=== PATIENT | female | born 1930 | race Caucasian/White ===

== ENCOUNTER 2017-01-20 19:05 | Inpatient (IN) | payer MEDICARE, OTHER ==
[~2017-01-20] VITALS: Ht 154.9 cm; Wt 66.1 kg
[~2017-01-20 19:05] MED LIST: ACID1TAB14 PO; AMLO5TAB4 PO; ASC500 GTB; ASPI81TA3 PO; LEVO25TA53 PO; LOSA100T47 PO; METF500T4 PO; METO50TA16 PO; MULTI GTB; SAN30GM TOP; SIMV20TA PO; VIT5OINT2 TOP; WARF4TAB PO
--- NOTE | 2017-01-20 19:55 | RADRPT ---
PROCEDURE: XR Chest. CLINICAL INDICATION: Abdominal pain TECHNIQUE: Single frontal view of the chest was obtained COMPARISON: 06/16/2016 FINDINGS: Atherosclerotic changes are seen in the aortic arch. There is persistent tortuosity of the descending thoracic aorta. The heart is upper limits of normal in size. Mild pulmonary vascular congestion is present. The lungs are otherwise clear. There is no pleural effusion or pneumothorax. The bones and soft tissue show no acute change. IMPRESSION: 1. Mild pulmonary vascular congestion is seen. 2. The heart is upper limits of normal in size with tortuosity of the descending thoracic aorta. RPTAT:AAJJ Physician Sofía Date Time Electronically viewed and signed by Vaibhav Hicks Physician on 01/20/2017 19:55 /
[2017-01-20 19:57] LABS: ABNORMAL IP MESSAGE 1; HEMATOCRIT 17.9 % (37.0-47.0); MEAN CORPUSCULAR HEMOGLOBIN 17.4 pg (29.0-33.0); MEAN CORPUSCULAR HGB CONC 25.1 g/dl (32.0-37.0); MEAN CORPUSCULAR VOLUME 69.1 fl (82.0-101.0); MEAN PLATELET VOLUME 9.4 fl (7.4-10.4); NUCLEATED RED BLOOD CELLS% 0.2 /100WBC (0.0-0.0); PLATELET COUNT 531 10^3/UL (140-415); RED BLOOD COUNT 2.59 10^6/ul (4.20-5.40)
[2017-01-20 20:12] LABS: INR 2.32; PROTIME 25.7 Sec (12.2-14.2)
[2017-01-20 20:13] LABS: HEMOGLOBIN 4.5 g/dl (12.0-16.0); PARTIAL THROMBOPLASTIN TIME 33.2 Sec (25.0-35.0); POSITIVE DIFF @See below
[2017-01-20 20:14] LABS: IRON 25 ug/dl (35-150)
[2017-01-20 20:16] LABS: ALANINE AMINOTRANSFERASE 33 IU/L (13-69); ALBUMIN 3.4 g/dl (3.3-4.9); ALBUMIN/GLOBULIN RATIO 0.91; ALKALINE PHOSPHATASE 105 IU/L (42-121); ANION GAP 18 (8-16); ASPARTATE AMINO TRANSFERASE 24 IU/L (15-46); BILIRUBIN,INDIRECT 0.1 mg/dl (0-1.1); BILIRUBIN,TOTAL 0.1 mg/dl (0.2-1.3); BLOOD UREA NITROGEN 19 mg/dl (7-20); CALCIUM 9.3 mg/dl (8.4-10.2); CARBON DIOXIDE 26 mmol/L (21-31); CHLORIDE 103 mmol/L (97-110); CREATININE 0.46 mg/dl (0.44-1.00); GLUCOSE 121 mg/dl (70-220); POTASSIUM 3.9 mmol/L (3.5-5.1); SODIUM 143 mmol/L (135-144); TOTAL PROTEIN 7.1 g/dl (6.1-8.1)
[2017-01-20 20:24] LABS: TOTAL IRON BINDING CAPACITY 351 ug/dl (241-421)
[2017-01-20 21:04] LABS: EOSINOPHILS # 1.2 10^3/ul (0.0-0.5); LYMPHOCYTES # 2.6 10^3/ul (0.8-2.9); MONOCYTE # 0.5 10^3/ul (0.3-0.9); NEUTROPHIL # 6.7 10^3/ul (1.6-7.5)
[2017-01-20 21:09] LABS: HYPOCHROMASIA 3+ (0-0)
[2017-01-20 21:32] LABS: FOLATE > 20.0 ng/ml (2.8-20.0)
--- NOTE | 2017-01-20 22:08 | ERA ---
ER Documentation Chief Complaint Date/Time DATE: 01/20/17 TIME: 21:57 Chief Complaint SENT BY PMD FOR LOW HEMOGLOBIN HPI This 86-year-old female with a past medical history of herpes zoster, right eye blindness, dementia, right CVA, type 2 diabetes mellitus and essential hypertension who is cared for at home by her family. She had routine blood work done by her primary care physician she was sent in for low hemoglobin. The family states that he changed her diapers every day and she has not had any black stool. She is however on Coumadin. She has had no vomiting no fever no cough the patient has very limited ability to converse due to her severe dementia and stroke. She is essentially bedridden. ROS All systems reviewed and are negative except as per history of present illness. Medications Home Meds Reported Medications Metformin* (Glucophage*) 500 Mg Tab, 500 MG PO QAM, #30 TAB 04/30/16 Simvastatin* (Zocor*) 20 Mg Tablet, 20 MG PO QHS, #30 TAB 04/30/16 Warfarin Sodium* (Coumadin*) 4 Mg Tablet, 4 MG PO DAILY, TAB 04/30/16 Levothyroxine Sodium* (Levothyroxine Sodium*) 25 Mcg Tablet, 25 MCG PO BEFORE BREAKFAST, #30 TAB 04/30/16 Metoprolol Succinate* (Toprol XL*) 50 Mg Tab.er.24h, 50 MG PO DAILY, #30 TAB TAKE 25 MG IF SBP 100 04/30/16 Aspirin* (Aspirin* Chew) 81 Mg Tab.chew, 81 MG PO DAILY, TAB.CHEW 04/30/16 Losartan Potassium* (Cozaar*) 100 Mg Tablet, 100 MG PO DAILY for NEEDED, #30 TAB 04/30/16 Amlodipine Besylate* (Norvasc*) 5 Mg Tablet, 5 MG PO DAILY for NEEDED, TAB 04/30/16 Discontinued Scripts Vits A & D/White Pet/Lanolin (Vitamin A & D Grx) 5 Gm Oint.pack, 1 APPLIC TOP BID for 30 Days Prov:SAM SCHERER 06/10/16 Multivitamins* (Theragran*) 1 Tab Tab, 1 TAB GTB DAILY for 30 Days, TAB Prov:REGIDORSAM 06/10/16 Lactobacillus Acidoph/Bulgaricus* (Floranex*) 1 Each Tablet, 1 TAB PO TID for 30 Days, TAB Prov:SAM SCHERER 06/10/16 Collagenase* (Santyl*) 30 Gm Oint..gm., 1 APPLIC TOP DAILY for 30 Days Prov:SAM SCHERER 06/10/16 Ascorbic Acid (Vitamin C) 500 Mg Tab, 500 MG GTB BID for 30 Days, TAB Prov:REGIDOSAM Gomez 06/10/16 Allergies Allergies: Coded Allergies: No Known Allergy (Unverified , 01/20/17) PMhx/Soc History of Surgery: Yes (, Appendectmy) Anesthesia Reaction: No Hx Neurological Disorder: Yes (Dementia, CVA with Right sided weakness) Hx Respiratory Disorders: No Hx Cardiac Disorders: Yes (HTN) Hx Psychiatric Problems: No Hx Miscellaneous Medical Probl: Yes (Herpes Zoster) Hx Alcohol Use: No Hx Substance Use: No Hx Tobacco Use: No Smoking Status: Never smoker FmHx Family History: No coronary disease Physical Exam Vitals Vital Signs Date Time Temp Pulse Resp B/P Pulse Ox O2 Delivery O2 Flow Rate FiO2 01/20/17 19:08 99.2 100 19 139/62 93 Physical Exam Const: [Well-developed, well-nourished] Head: [Atraumatic, normocephalic] Eyes: [Normal Conjunctiva, right eye shut PERRLA, EOMI, normal sclera, no nystagmus] ENT: [Normal External Ears, Nose and Mouth, moist mucus membranes.] Neck: [Full range of motion. No meningismus, no lymphadenopathy.] Resp: [Clear to auscultation bilaterally, no wheezing, rhonchi, rales] Cardio: [Regular rate and rhythm, no murmurs, S1 S2 present] Abd: [Soft, non tender x 4, non distended. Normal bowel sounds, no guarding or rebound, no pulsitile abdominal masses or bruits] Skin: [No petechiae or rashes, no ecchymosis , no maculopapular rash] Back: [No midline or flank tenderness] Ext: Contracted extremities [No cyanosis, or edema, limited range of motion normal inspection, neurovascularly intact x 4] Neur: [Sleepy but arousable sensation intact x 4, Psych: Unable to assess Result Diagram: 01/20/17194101/20/171941 Results 24 hrs Laboratory Tests Test 01/20/17 19:42 White Blood Count 11.510^3/ul Red Blood Count 2.5910^6/ul Hemoglobin 4.5g/dl Hematocrit 17.9% Mean Corpuscular Volume 69.1fl Mean Corpuscular Hemoglobin 17.4pg Mean Corpuscular Hemoglobin Concent 25.1g/dl Red Cell Distribution Width 22.0% Platelet Count 20758^3/UL Mean Platelet Volume 9.4fl Neutrophils % 58.0% Lymphocytes % 23.0% Monocytes % 4.0% Eosinophils % 10.0% Basophils % % Nucleated Red Blood Cells % 0.2/100WBC Neutrophils # 6.710^3/ul Band Neutrophils # 6.710^3/ul Lymphocytes # 2.610^3/ul Monocytes # 0.510^3/ul Eosinophils # 1.210^3/ul Basophils # 10^3/ul Nucleated Red Blood Cells # 10^3/ul Hypochromasia 3+ Rouleau 3+ Prothrombin Time 25.7Sec Prothrombin Time Ratio 2.0 INR International Normalized Ratio 2.32 Activated Partial Thromboplast Time 33.2Sec Sodium Level 143mmol/L Potassium Level 3.9mmol/L Chloride Level 103mmol/L Carbon Dioxide Level 26mmol/L Anion Gap 18 Blood Urea Nitrogen 19mg/dl Creatinine 0.46mg/dl Glucose Level 121mg/dl Calcium Level 9.3mg/dl Iron Level 25ug/dl Total Iron Binding Capacity 351ug/dl Percent Iron Saturation 7% SAT Total Bilirubin 0.1mg/dl Direct Bilirubin 0.00mg/dl Indirect Bilirubin 0.1mg/dl Aspartate Amino Transf (AST/SGOT) 24IU/L Alanine Aminotransferase (ALT/SGPT) 33IU/L Alkaline Phosphatase 105IU/L Total Protein 7.1g/dl Albumin 3.4g/dl Globulin 3.70g/dl Albumin/Globulin Ratio 0.91 Folate > 20.0ng/ml Procedures/MDM PROCEDURE: XR Chest. CLINICAL INDICATION: Abdominal pain TECHNIQUE: Single frontal view of the chest was obtained COMPARISON: 06/16/2016 FINDINGS: Atherosclerotic changes are seen in the aortic arch. There is persistent tortuosity of the descending thoracic aorta. The heart is upper limits of normal in size. Mild pulmonary vascular congestion is present. The lungs are otherwise clear. There is no pleural effusion or pneumothorax. The bones and soft tissue show no acute change. IMPRESSION: 1. Mild pulmonary vascular congestion is seen. 2. The heart is upper limits of normal in size with tortuosity of the descending thoracic aorta. RPTAT:AAJJ Vaibhav Hicks Physician Date Time Electronically viewed and signed by Vaibhav Hicks Physician on 01/20/2017 19: 55 MC/ CC: SONIYA CASTANEDA DO Patient is going to receive 2 units of packed red blood cells. INR is 2.25 We will give FFP to reverse the coagulopathy We will admit to panel for blood transfusion and further workup Critical Care Time: 30 minutes Treatments/Evaluations: Close monitoring and treatment of unstable vital signs, cardiorespiratory, and neurologic status, while maintaining tight balance of fluid, respiratory, and cardiac interventions. This time includes discussing the case with the patient and the patient's family. This time does not include all procedures stated elsewhere in this record. This time also includes reviewing old records, labs and radiological studies. This time includes examining and re-examining the patient. Additionally, this time also includes arranging care with admitting and consulting physicians. Departure Diagnosis: Primary Impression: Anemia Qualified Code: D64.9 - Anemia, unspecified type Condition: Stable SONIYA CASTANEDA DO Jan 20, 2017 22:07
[2017-01-20] MEDS ORDERED: ONDANSETRON 4 MG INJ IV PRN (22:30)
[2017-01-20] MEDS ORDERED: ACETAMINOPHEN 325 MG TAB PO PRN (22:30)
[2017-01-20 23:00] VITALS: TEMP 99
[2017-01-20 23:30] VITALS: Ht 154.9 cm; Wt 66.1 kg
[2017-01-21] VITALS (10 sets, daily range): BP systolic 127–160; BP diastolic 57–70; PULSE 90–112; RESP 17–20
[2017-01-21] MEDS ORDERED: FUROSEMIDE 20 MG INJ IV ONE (01:30)
[2017-01-21] MEDS: PANTOPRAZOLE IV 80 MG in SOD CHLORIDE 0.9% 100 ML IV SCH ×3 (03:33→21:21)
[2017-01-21] MEDS ORDERED: hydrALAzine 20 MG INJ IV PRN (05:00)
--- NOTE | 2017-01-21 05:56 | HP ---
Date/Time of Note Date/Time of Note DATE: 01/21/17 TIME: 05:44 Assessment/Plan VTE Prophylaxis VTE Prophylaxis Intervention: SCD's Lines/Catheters IV [facility] (from [facility] Peripheral IV Urinary Cath still in place: Yes Assessment/Plan Assessment/Plan IMPRESSION 1. Severe microcytic iron deficiency Anemia 2. History of CVA, patient is aphasic with chronic bedridden state 3. Type 2 diabetes mellitus. 4. Essential hypertension. 5. History of hypothyroidism. 6. Cardiomyopathy with ejection fraction of 40%. 7. Bilateral foot pressure ulcers. 8. Dysphagia with G-tube for feeding 9. History of dyslipidemia. PLAN - Continue blood transfusion. Will order ferritin to further evaluate the severity of iron deficiency. Will start IV iron. Will order FOBT. Will place a GI consult -will keep n.p.o. for now until seen by GI and then will resume home medications with adjustment as needed -will hold tube feeding for now until evaluated by GI -will place on antibiotic for ulcers on both her feet. Wound care consult will be placed HPI/ROS Admit Date/Time Admit Date/Time Jan 20, 2017 at 22:20 Hx of Present Illness This is an 86-year-old female with a history of CVA, chronic bedridden state, right eye blindness, dysphagia with G-tube for feeding, cardiomyopathy with EF of 40%, hypertension, diabetes, dyslipidemia and a history of infected sacral pressure ulcers. Patient was sent by PMD for abnormal lab, namely low hemoglobin. Patient is aphasic and does not follow commands and as such information is gathered from chart review and from the ER physician report. When she presented to the ER she was found to have a hemoglobin of 4.2 with MCV of 69. Iron studies consistent with iron deficiency. She has been started on the blood transfusion. Per ER physician, family reported that they change her diet per daily and has not seen dark stool or bright red blood. . PMH/Family/Social Past Medical History 1. Status post sepsis secondary to urinary tract infection and infected sacral pressure ulcers. 2. Microcytic, hypochromic anemia. 3. Type 2 diabetes mellitus. 4. Essential hypertension. 5. Hypothyroidism. 6. Cardiomyopathy with ejection fraction of 40%. 7. Infected sacral pressure ulcers. 8. Dysphagia. 9. Dyslipidemia. 10. Hypercoagulability on anticoagulation. 11. Chronic bedridden status. 12. Mild pulmonary hypertension. Social History Smoking Status: Never smoker Exam/Review of Systems Vital Signs Vitals Vital Signs Date Time Temp Pulse Resp B/P Pulse Ox O2 Delivery O2 Flow Rate FiO2 01/21/17 04:08 93 01/21/17 00:18 98.4 17 160/67 98 01/21/17 00:00 Nasal Cannula 2.0 Exam Constitutional: other (No acute distress. Patient is aphasic and she does not follow commands.) Head: atraumatic, normocephalic Eyes: other (Right eye blindness) Respiratory: clear to auscultation, normal air movement Cardiovascular: other (Tachycardic with regular rhythm) Gastrointestinal: other (NG tube in place with no sign of infection in the surrounding skin), soft Extremities: other (Pressure ulcers on both feet) Labs Result Diagram: 01/20/17194101/20/171941 Medications Medications Current Medications Pantoprazole/ Sodium Chloride (Protonix Iv/NS) 100 ml @ 10 mls/hr Q10H IV Last administered on 01/21/17t 03:33; Admin Dose 10 MLS/HR; Start 01/21/17 at 01: 30 Hydralazine HCl (Apresoline) 10 mg Q4H PRN IV ELEVATED SYSTOLIC BP; Start at 05:00 Metoprolol Tartrate (Lopressor) 25 mg Q12 GTB ; Start 01/21/17 at 09:00 LIZETH WHITE MD Jan 21, 2017 05:54
[2017-01-21 08:36] LABS: ABNORMAL IP MESSAGE 1; BASOPHIL # 0.1 10^3/ul (0.0-0.1); BASOPHILS % 0.5 % (0.0-2.0); EOSINOPHILS # 0.7 10^3/ul (0.0-0.5); EOSINOPHILS % 6.8 % (0.0-7.0); HEMATOCRIT 28.7 % (37.0-47.0); LYMPHOCYTES # 2.6 10^3/ul (0.8-2.9); MEAN CORPUSCULAR HEMOGLOBIN 20.4 pg (29.0-33.0); MEAN CORPUSCULAR HGB CONC 27.9 g/dl (32.0-37.0); MEAN PLATELET VOLUME 9.6 fl (7.4-10.4); MONOCYTE # 0.9 10^3/ul (0.3-0.9); NEUTROPHIL # 6.1 10^3/ul (1.6-7.5); NEUTROPHILS % 57.4 % (39.0-77.0); NUCLEATED RED BLOOD CELLS # 0.1 10^3/ul (0.0-0.0); NUCLEATED RED BLOOD CELLS% 1.3 /100WBC (0.0-0.0); PLATELET COUNT 418 10^3/UL (140-415); RED BLOOD COUNT 3.93 10^6/ul (4.20-5.40); WHITE BLOOD COUNT 10.7 10^3/ul (4.8-10.8)
[2017-01-21 08:37] LABS: POSITIVE DIFF @See below
[2017-01-21] MEDS: TRIMETHOPRIM/SULFAMETHOX (DS) TAB GTB SCH ×2 (09:00→21:20)
[2017-01-21] MEDS ORDERED: METOPROLOL 25 MG TAB GTB SCH (09:00)
[2017-01-21 09:14] LABS: ALBUMIN 3.8 g/dl (3.3-4.9); ALBUMIN/GLOBULIN RATIO 0.97; BILIRUBIN,INDIRECT 0.4 mg/dl (0-1.1); BILIRUBIN,TOTAL 0.4 mg/dl (0.2-1.3); CALCIUM 9.4 mg/dl (8.4-10.2); CREATININE 0.45 mg/dl (0.44-1.00); MAGNESIUM 2.2 mg/dl (1.7-2.5); POTASSIUM 3.6 mmol/L (3.5-5.1); TOTAL PROTEIN 7.7 g/dl (6.1-8.1)
--- NOTE | 2017-01-21 10:20 | CONS ---
Date/Time of Note Date/Time of Note DATE: 01/21/17 TIME: 09:56 Assessment/Plan Assessment/Plan Additional Assessment/Plan Assessment * Anemia Iron deficiency vs others * Prolong INR * Diabetes mellitus * Cardiomyopathy with EF 40% * Dysphagia on G tube * Chronic bedridden status Plan * Monitor hemoglobin and hematocrit daily and transfuse per protocol * Pantoprazole 40 mg BID * Stool for occult blood * Further orders will depend on clinical course Consultation Date/Type/Reason Admit Date/Time Jan 20, 2017 at 22:20 Date of Consultation: Jan 21, 2017 Type of Consultation: gastroenterology Reason for Consultation anemia Referring Provider: LADARIUS OAKLEY Hx of Present Illness 86 year old female with history of CVA,blind right eye,cardiomyopathy,G tube feeding,anemia,bedridden,pressure ulcer was sent by her physician because of abnormal laboratory results.Initial hemoglobin was 4.5.Per records family denies any melena ,hematemesis,hematochezia nor chest pain nor shortness of breath.Patient received 2 units of blood and presently receiving fresh frozen plasma.presently,no evidenced hematochezia,melena nor shortness of breath Past Medical History Medical History: congestive heart failure, deep vein thrombosis, diabetes, GERD , other (dysphagia,hypertension,hypercoagulability on coumadin) Past Surgical History Past Surgical Hx: other (g tube) Family History Significant Family History: no pertinent family hx Social History Smoking Status: Never smoker Exam/Review of Systems Vital Signs Vitals Vital Signs Date Time Temp Pulse Resp B/P Pulse Ox O2 Delivery O2 Flow Rate FiO2 01/21/17 08:07 90 01/21/17 07:48 98.6 20 154/64 98 01/21/17 00:00 Nasal Cannula 2.0 Intake and Output 01/20/17 01/20/17 01/21/17 15:00 23:00 07:00 Intake Total 1000 ml Output Total 1700 ml Balance -700 ml Exam Constitutional: frail, other (aphasia) ENMT: mucosa pink and moist Neck: non-tender, supple Respiratory: crackles/rales, diminished breath sounds Cardiovascular: nl pulses, regular rate and rhythm Gastrointestinal: bowel sounds, other (g tube) Musculoskeletal: muscle weakness Extremities: edema, pitting pedal edema Neurological: other (non verbal) Results Result Diagram: 01/21/1730 01/21/17 0730 Results 24 hrs Laboratory Tests Test 01/20/17 19:42 01/21/17 07:30 White Blood Count 11.5 H 10.7 Red Blood Count 2.59 #L 3.93 #L Hemoglobin 4.5 #*L 8.0 #L Hematocrit 17.9 #L 28.7 #L Mean Corpuscular Volume 69.1 L 73.0 L Mean Corpuscular Hemoglobin 17.4 #L 20.4 L Mean Corpuscular Hemoglobin Concent 25.1 #L 27.9 L Red Cell Distribution Width 22.0 H 21.0 H Platelet Count 531 H 418 #H Mean Platelet Volume 9.4 # 9.6 Neutrophils % 58.0 57.4 Lymphocytes % 23.0 24.0 Monocytes % 4.0 8.0 Eosinophils % 10.0 H 6.8 Basophils % 0.5 Nucleated Red Blood Cells % 0.2 H 1.3 H Neutrophils # 6.7 6.1 Band Neutrophils # 6.7 H Lymphocytes # 2.6 2.6 Monocytes # 0.5 0.9 Eosinophils # 1.2 H 0.7 H Basophils # 0.1 Nucleated Red Blood Cells # 0.1 H Hypochromasia 3+ Rouleau 3+ Prothrombin Time 25.7 H Prothrombin Time Ratio 2.0 INR International Normalized Ratio 2.32 Activated Partial Thromboplast Time 33.2 Sodium Level 143 144 Potassium Level 3.9 3.6 Chloride Level 103 102 Carbon Dioxide Level 26 26 Anion Gap 18 H 20 H Blood Urea Nitrogen 19 15 Creatinine 0.46 0.45 Glucose Level 121 111 Calcium Level 9.3 9.4 Iron Level 25 L Total Iron Binding Capacity 351 Percent Iron Saturation 7 L Total Bilirubin 0.1 L 0.4 Direct Bilirubin 0.00 0.00 Indirect Bilirubin 0.1 0.4 Aspartate Amino Transf (AST/SGOT) 24 34 Alanine Aminotransferase (ALT/SGPT) 33 34 Alkaline Phosphatase 105 108 Total Protein 7.1 7.7 Albumin 3.4 3.8 Globulin 3.70 H 3.90 H Albumin/Globulin Ratio 0.91 0.97 Folate > 20.0 H Phosphorus Level 3.0 Magnesium Level 2.2 Ferritin 9.1 L Medications Medications Current Medications Pantoprazole/ Sodium Chloride (Protonix Iv/NS) 100 ml @ 10 mls/hr Q10H IV Last administered on 01/21/17 03:33; Admin Dose 10 MLS/HR; Start 01/21/17 at 01: 30 Hydralazine HCl (Apresoline) 10 mg Q4H PRN IV ELEVATED SYSTOLIC BP; Start at 05:00 Metoprolol Tartrate (Lopressor) 25 mg Q12 GTB ; Start 01/21/17 at 09:00 Trimethoprim/ Sulfamethoxazole (Bactrim (Ds)) 1 tab BID GTB ; Start 01/21/17 at 09:00 ALONDRA BROWN MD Jan 21, 2017 10:06
[2017-01-21 11:23] LABS: WHITE BLOOD COUNT 11.5 10^3/ul (4.8-10.8)
[2017-01-21] MEDS: AMLODIPINE 5 MG TAB PO SCH (15:00)
[2017-01-21] MEDS: LOSARTAN 50 MG TAB PO SCH (15:00)
--- NOTE | 2017-01-21 15:09 | PN ---
Date/Time of Note Date/Time of Note DATE: 01/21/17 TIME: 15:05 Assessment/Plan VTE Prophylaxis VTE Prophylaxis Intervention: SCD's Lines/Catheters IV [facility] ([facility] Peripheral IV Urinary Cath still in place: Yes Reason Cath still needed: urinary retention Assessment/Plan Assessment/Plan Assessment * Anemia Iron deficiency vs others * Refused EGD * Prolong INR * Diabetes mellitus * Cardiomyopathy with EF 40% * Dysphagia on G tube * Chronic bedridden status Plan * Monitor hemoglobin and hematocrit daily and transfuse per protocol * Pantoprazole 40 mg BID * Stool for occult blood * start tube feeding * refer for nutrition consult ,defer feeding orders to seed cleaning manager * Further orders will depend on clinical course Subjective 24 Hr Interval Summary Free Text/Dictation * Patient seen and examined * Spoke to daughter,refused planned EGD preferring observation * Asking to restart feeding Exam/Review of Systems Vital Signs Vitals Vital Signs Date Time Temp Pulse Resp B/P Pulse Ox O2 Delivery O2 Flow Rate FiO2 01/21/17 12:21 99.0 108 19 153/70 95 01/21/17 08:00 Nasal Cannula 2.0 Intake and Output 01/20/17 01/20/17 01/21/17 15:00 23:00 07:00 Intake Total 1000 ml Output Total 1700 ml Balance -700 ml Exam Constitutional: frail Neck: non-tender, supple Respiratory: clear to auscultation, normal air movement Cardiovascular: nl pulses, regular rate and rhythm Gastrointestinal: nl liver, spleen, soft Musculoskeletal: nl extremities to inspection, nl gait and stance Extremities: normal pulses Skin: nl turgor, rash or lesions Results Result Diagram: 01/21/17 0730 01/21/17 0730 Results 24 hrs Laboratory Tests Test 01/20/17 19:42 01/21/17 07:30 White Blood Count 11.5 H 10.7 Red Blood Count 2.59 #L 3.93 #L Hemoglobin 4.5 #*L 8.0 #L Hematocrit 17.9 #L 28.7 #L Mean Corpuscular Volume 69.1 L 73.0 L Mean Corpuscular Hemoglobin 17.4 #L 20.4 L Mean Corpuscular Hemoglobin Concent 25.1 #L 27.9 L Red Cell Distribution Width 22.0 H 21.0 H Platelet Count 531 H 418 #H Mean Platelet Volume 9.4 # 9.6 Neutrophils % 58.0 57.4 Lymphocytes % 23.0 24.0 Monocytes % 4.0 8.0 Eosinophils % 10.0 H 6.8 Basophils % 0.5 Nucleated Red Blood Cells % 0.2 H 1.3 H Neutrophils # 6.7 6.1 Band Neutrophils # Lymphocytes # 2.6 2.6 Monocytes # 0.5 0.9 Eosinophils # 1.2 H 0.7 H Basophils # 0.1 Nucleated Red Blood Cells # 0.1 H Hypochromasia 3+ Rouleau 3+ Prothrombin Time 25.7 H Prothrombin Time Ratio 2.0 INR International Normalized Ratio 2.32 Activated Partial Thromboplast Time 33.2 Sodium Level 143 144 Potassium Level 3.9 3.6 Chloride Level 103 102 Carbon Dioxide Level 26 26 Anion Gap 18 H 20 H Blood Urea Nitrogen 19 15 Creatinine 0.46 0.45 Glucose Level 121 111 Calcium Level 9.3 9.4 Iron Level 25 L Total Iron Binding Capacity 351 Percent Iron Saturation 7 L Total Bilirubin 0.1 L 0.4 Direct Bilirubin 0.00 0.00 Indirect Bilirubin 0.1 0.4 Aspartate Amino Transf (AST/SGOT) 24 34 Alanine Aminotransferase (ALT/SGPT) 33 34 Alkaline Phosphatase 105 108 Total Protein 7.1 7.7 Albumin 3.4 3.8 Globulin 3.70 H 3.90 H Albumin/Globulin Ratio 0.91 0.97 Folate > 20.0 H Phosphorus Level 3.0 Magnesium Level 2.2 Ferritin 9.1 L Medications Medications Current Medications Pantoprazole/ Sodium Chloride (Protonix Iv/NS) 100 ml @ 10 mls/hr Q10H IV Last administered on 01/21/17 11:13; Admin Dose 10 MLS/HR; Start 01/21/17 at 01: 30 Hydralazine HCl (Apresoline) 10 mg Q4H PRN IV ELEVATED SYSTOLIC BP Last administered on 01/21/17 11:37; Admin Dose 10 MG; Start 01/21/17 at 05:00 Trimethoprim/ Sulfamethoxazole (Bactrim (Ds)) 1 tab BID GTB ; Start 01/21/17 at 09:00 Amlodipine Besylate (Norvasc) 5 mg DAILY PO ; Start 01/21/17 at 15:00 Losartan Potassium (Cozaar) 100 mg DAILY PO ; Start 01/21/17 at 15:00 Metoprolol Tartrate (Lopressor) 25 mg BID NGT ; Start 01/21/17 at 21:00 Diagnostic Test (Pha) (Accu-Chek) 1 ea 02 XX ; Start 01/22/17 at 02:00 Diagnostic Test (Pha) (Accu-Chek) 1 ea XX ; Start 01/22/17 at 02:00 Atorvastatin Calcium (Lipitor) 10 mg DAILY@21 PO ; Start 01/21/17 at 21:00 BORA OLIVO NP Jan 21, 2017 15:09
[2017-01-21] MEDS: LEVOTHYROXINE 25 MCG TAB PO SCH (17:08)
[2017-01-21] MEDS ORDERED: DEXTROSE 50% 50 ML SYRINGE IV PRN ×2 (18:00)
[2017-01-21] MEDS ORDERED: GLUCOSE GEL 15 GRAM TUBE BUCCAL PRN (18:00)
[2017-01-21] MEDS ORDERED: GLUCOSE GEL 15 GRAM TUBE PO PRN ×2 (18:00)
[2017-01-21] MEDS ORDERED: GLUCAGON 1 MG INJ IM PRN (18:00)
[2017-01-21] MEDS: INSULIN ASPART [NOVOLOG] 3 ML PEN SC SCH ×2 (18:05→21:28)
[2017-01-21] MEDS ORDERED: NON-FORMULARY/PATIENT OWN MED (Simvastatin* (Zocor*) 20 MG) PO SCH (21:00)
[2017-01-21] MEDS: ATORVASTATIN 10 MG TAB PO SCH (21:20)
[2017-01-21] MEDS: METOPROLOL 25 MG TAB NGT SCH (21:20)
[2017-01-22] VITALS (12 sets, daily range): BP systolic 116–148; BP diastolic 49–84; PULSE 79–97; RESP 15–20
[2017-01-22] MEDS ORDERED: INSULIN ASPART [NOVOLOG] 3 ML PEN SC SCH (01:00)
[2017-01-22] MEDS: Insulin NOVOLOG SS MILD Algorithm (NPO/TPN/ENTERAL FEEDS) SC SCH ×6 (01:06→20:56)
[2017-01-22] MEDS ORDERED: ACCU-CHEK XX SCH ×2 (02:00)
[2017-01-22] MEDS ORDERED: BISACODYL 10 MG SUPP PR PRN (03:00)
[2017-01-22] MEDS ORDERED: HYDROCORTISONE 1% 28.35 GM OINT TOP PRN (03:00)
[2017-01-22] MEDS: LEVOTHYROXINE 25 MCG TAB PO SCH (05:09)
[2017-01-22 06:37] LABS: ABNORMAL IP MESSAGE 1; BASOPHIL # 0.1 10^3/ul (0.0-0.1); BASOPHILS % 0.5 % (0.0-2.0); EOSINOPHILS # 0.8 10^3/ul (0.0-0.5); HEMATOCRIT 28.6 % (37.0-47.0); HEMOGLOBIN 7.8 g/dl (12.0-16.0); LYMPHOCYTES # 3.3 10^3/ul (0.8-2.9); LYMPHOCYTES % 28.4 % (15.0-51.0); MEAN CORPUSCULAR HEMOGLOBIN 20.3 pg (29.0-33.0); MEAN CORPUSCULAR HGB CONC 27.3 g/dl (32.0-37.0); MEAN CORPUSCULAR VOLUME 74.3 fl (82.0-101.0); MEAN PLATELET VOLUME 9.3 fl (7.4-10.4); NEUTROPHIL # 6.3 10^3/ul (1.6-7.5); NEUTROPHILS % 54.7 % (39.0-77.0); NUCLEATED RED BLOOD CELLS% 0.3 /100WBC (0.0-0.0); PLATELET COUNT 444 10^3/UL (140-415); RED BLOOD COUNT 3.85 10^6/ul (4.20-5.40); WHITE BLOOD COUNT 11.5 10^3/ul (4.8-10.8)
[2017-01-22 06:45] LABS: POSITIVE DIFF @See below
[2017-01-22 07:07] LABS: CALCIUM 9.4 mg/dl (8.4-10.2); CREATININE 0.64 mg/dl (0.44-1.00); MAGNESIUM 2.3 mg/dl (1.7-2.5); PHOSPHORUS 2.9 mg/dl (2.5-4.9); POTASSIUM 3.8 mmol/L (3.5-5.1)
--- NOTE | 2017-01-22 07:54 | CONS ---
Date/Time of Note Date/Time of Note DATE: 01/22/17 TIME: 07:49 Assessment/Plan Assessment/Plan Additional Assessment/Plan This is an 86-year-old female with advanced dementia that we have very little database in so far as her social history, CODE STATUS. From a palliative care standpoint I will contact any family members try and clarify her code currently she is full code. Consultation Date/Type/Reason Admit Date/Time Jan 20, 2017 at 22:20 Date of Consultation: Jan 21, 2017 Reason for Consultation 86-year-old female I am seeing for palliative care consultation. Patient was transferred to [facility] and she was found to have a critically low hemoglobin level, since that time she has been transfused. Patient is a non-historian and no no family members who immediately available to speak with, however it is known that she has severe advanced dementia and a past medical history of CVA . Comorbid medical problems include type 2 diabetes hypertension hypothyroidism cardiomyopathy with an EF of 40%. Past Medical History Medical History: congestive heart failure, deep vein thrombosis, diabetes, GERD , other (dysphagia,hypertension,hypercoagulability on coumadin) Past Surgical History Past Surgical Hx: other (g tube) Social History Smoking Status: Never smoker Exam/Review of Systems Vital Signs Vitals Vital Signs Date Time Temp Pulse Resp B/P Pulse Ox O2 Delivery O2 Flow Rate FiO2 01/22/17 07:31 99.1 99 18 148/67 95 01/21/17 22:00 Nasal Cannula 2.0 Intake and Output 01/21/17 01/21/17 01/22/17 15:00 23:00 07:00 Intake Total 627 ml 820 ml Output Total 1600 ml 800 ml Balance -973 ml 20 ml Exam Constitutional: other (Noncommunicative, appears to be emaciated, frail) Head: No atraumatic, No hematomas, No lacerations, No normocephalic, No other Eyes: other (Empty right globe) ENMT: No intubated, No mucosa pink and moist, No nl external ears & nose, No nl lips & teeth, No nl nasal mucosa & septum, No other, No tympanic membranes Respiratory: No clear to auscultation, No congested cough, No crackles/rales, No diminished breath sounds, No intercostal retraction, No labored breathing, No normal air movement, No other, No respirations, No tactile fremitus, No wheezing Cardiovascular: No S3, No S4, No bruits, No diastolic murmur, No edema, No gallop, No irregular rhythm, No jugular venous distention (JVD), No murmurs/ extra sounds, No nl pulses, No other, No regular rate and rhythm, No rub, No systolic murmur Neurological: other (Noncommunicative does not follow simple commands does not track does not have any spontaneous purposeful movement, nonverbal) Results Result Diagram: 01/22/17 0552 01/22/17 0552 Results 24 hrs Laboratory Tests Test 01/21/17 18:30 01/21/17 21:10 01/22/17 00:40 01/22/17 04:31 Bedside Glucose 137 142 154 143 Test 01/22/17 05:52 White Blood Count 11.5 H Red Blood Count 3.85 L Hemoglobin 7.8 L Hematocrit 28.6 L Mean Corpuscular Volume 74.3 L Mean Corpuscular Hemoglobin 20.3 L Mean Corpuscular Hemoglobin Concent 27.3 L Red Cell Distribution Width 22.0 H Platelet Count 444 H Mean Platelet Volume 9.3 Neutrophils % 54.7 Lymphocytes % 28.4 Monocytes % 9.0 Eosinophils % 7.0 Basophils % 0.5 Nucleated Red Blood Cells % 0.3 H Neutrophils # 6.3 Lymphocytes # 3.3 H Monocytes # 1.0 H Eosinophils # 0.8 H Basophils # 0.1 Nucleated Red Blood Cells # 0.0 Sodium Level 147 H Potassium Level 3.8 Chloride Level 107 Carbon Dioxide Level 26 Anion Gap 18 H Blood Urea Nitrogen 16 Creatinine 0.64 Glucose Level 131 Calcium Level 9.4 Phosphorus Level 2.9 Magnesium Level 2.3 Medications Medications Current Medications Pantoprazole/ Sodium Chloride (Protonix Iv/NS) 100 ml @ 10 mls/hr Q10H IV Last administered on 01/21/17 21:21; Admin Dose 10 MLS/HR; Start 01/21/17 at 01: 30 Hydralazine HCl (Apresoline) 10 mg Q4H PRN IV ELEVATED SYSTOLIC BP Last administered on 01/21/17 11:37; Admin Dose 10 MG; Start 01/21/17 at 05:00 Trimethoprim/ Sulfamethoxazole (Bactrim (Ds)) 1 tab BID GTB Last administered on 01/21/17 21:20; Admin Dose 1 TAB; Start 01/21/17 at 09:00 Amlodipine Besylate (Norvasc) 5 mg DAILY PO ; Start 01/21/17 at 15:00 Losartan Potassium (Cozaar) 100 mg DAILY PO ; Start 01/21/17 at 15:00 Metoprolol Tartrate (Lopressor) 25 mg BID NGT Last administered on 01/21/17 21: 20; Admin Dose 25 MG; Start 01/21/17 at 21:00 Atorvastatin Calcium (Lipitor) 10 mg DAILY@21 PO Last administered on 01/21/17 21:20; Admin Dose 10 MG; Start 01/21/17 at 21:00 Miscellaneous Information 1 ea NOTE XX ; Start 01/21/17 at 18:00 Glucose (Glutose) 15 gm Q15M PRN PO DECREASED GLUCOSE; Start 01/21/17 at 18:00 Glucose (Glutose) 22.5 gm Q15M PRN PO DECREASED GLUCOSE; Start 01/21/17 at 18:00 Dextrose (D50w Syringe) 25 ml Q15M PRN IV DECREASED GLUCOSE; Start 01/21/17 at 18:00 Dextrose (D50w Syringe) 50 ml Q15M PRN IV DECREASED GLUCOSE; Start 01/21/17 at 18:00 Glucagon (Glucagen) 1 mg Q15M PRN IM DECREASED GLUCOSE; Start 01/21/17 at 18:00 Glucose (Glutose) 15 gm Q15M PRN BUCCAL DECREASED GLUCOSE; Start 01/21/17 at 18: 00 Insulin Aspart (Novolog Insulin Pen) (Adult SC Insulin - Mild Algorithm)... Q4 SC Last administered on 01/22/17 04:37; Admin Dose 1 UNIT; Start 01/22/17 at 01: 00 Hydrocortisone (Hydrocortisone 1% Oint) 1 applic TID PRN TOP PRURITUS; Start at 03:00 Bisacodyl (Dulcolax Supp) 10 mg DAILY PRN [place] CONSTIPATION Last administered on 01/22/17 04:10; Admin Dose 10 MG; Start 01/22/17 at 03:00 KELSIE VIRAMONTES Jan 22, 2017 07:54
--- NOTE | 2017-01-22 08:03 | CONS ---
Date/Time of Note Date/Time of Note DATE: 01/22/17 TIME: 08:01 Consultation Date/Type/Reason Admit Date/Time Jan 20, 2017 at 22:20 Initial Consult Date 01/21/17 Type of Consultation: Palliative care Referring Provider: LADARIUS OAKLEY 24 HR Interval Summary Free Text/Dictation Had a discussion with patient's daughter who made it very clear that she does not want to be aggressive with her mother no life support no unnecessary procedures and apparently this is been conveyed to the emergency room on admission. Will change patient's CODE STATUS support family's members decision , goals of care has been discussed with him in detail only to make sure that she is comfortable without doing unnecessary medical procedures that will not contribute to her ongoing quality of life. Exam/Review of Systems Vital Signs Vitals Vital Signs Date Time Temp Pulse Resp B/P Pulse Ox O2 Delivery O2 Flow Rate FiO2 01/22/17 07:31 99.1 99 18 148/67 95 01/21/17 22:00 Nasal Cannula 2.0 Intake and Output 01/21/17 01/21/17 01/22/17 15:00 23:00 07:00 Intake Total 627 ml 820 ml Output Total 1600 ml 800 ml Balance -973 ml 20 ml Results Result Diagram: 01/22/17 0552 01/22/17 0552 Results 24 hrs Laboratory Tests Test 01/21/17 18:30 01/21/17 21:10 01/22/17 00:40 01/22/17 04:31 Bedside Glucose 137 142 154 143 Test 01/22/17 05:52 White Blood Count 11.5 H Red Blood Count 3.85 L Hemoglobin 7.8 L Hematocrit 28.6 L Mean Corpuscular Volume 74.3 L Mean Corpuscular Hemoglobin 20.3 L Mean Corpuscular Hemoglobin Concent 27.3 L Red Cell Distribution Width 22.0 H Platelet Count 444 H Mean Platelet Volume 9.3 Neutrophils % 54.7 Lymphocytes % 28.4 Monocytes % 9.0 Eosinophils % 7.0 Basophils % 0.5 Nucleated Red Blood Cells % 0.3 H Neutrophils # 6.3 Lymphocytes # 3.3 H Monocytes # 1.0 H Eosinophils # 0.8 H Basophils # 0.1 Nucleated Red Blood Cells # 0.0 Sodium Level 147 H Potassium Level 3.8 Chloride Level 107 Carbon Dioxide Level 26 Anion Gap 18 H Blood Urea Nitrogen 16 Creatinine 0.64 Glucose Level 131 Calcium Level 9.4 Phosphorus Level 2.9 Magnesium Level 2.3 Medications Medications Current Medications Pantoprazole/ Sodium Chloride (Protonix Iv/NS) 100 ml @ 10 mls/hr Q10H IV Last administered on 01/21/17 21:21; Admin Dose 10 MLS/HR; Start 01/21/17 at 01: 30 Hydralazine HCl (Apresoline) 10 mg Q4H PRN IV ELEVATED SYSTOLIC BP Last administered on 01/21/17 11:37; Admin Dose 10 MG; Start 01/21/17 at 05:00 Trimethoprim/ Sulfamethoxazole (Bactrim (Ds)) 1 tab BID GTB Last administered on 01/21/17 21:20; Admin Dose 1 TAB; Start 01/21/17 at 09:00 Amlodipine Besylate (Norvasc) 5 mg DAILY PO ; Start 01/21/17 at 15:00 Losartan Potassium (Cozaar) 100 mg DAILY PO ; Start 01/21/17 at 15:00 Metoprolol Tartrate (Lopressor) 25 mg BID NGT Last administered on 01/21/17 21: 20; Admin Dose 25 MG; Start 01/21/17 at 21:00 Atorvastatin Calcium (Lipitor) 10 mg DAILY@21 PO Last administered on 01/21/17 21:20; Admin Dose 10 MG; Start 01/21/17 at 21:00 Miscellaneous Information 1 ea NOTE XX ; Start 01/21/17 at 18:00 Glucose (Glutose) 15 gm Q15M PRN PO DECREASED GLUCOSE; Start 01/21/17 at 18:00 Glucose (Glutose) 22.5 gm Q15M PRN PO DECREASED GLUCOSE; Start 01/21/17 at 18:00 Dextrose (D50w Syringe) 25 ml Q15M PRN IV DECREASED GLUCOSE; Start 01/21/17 at 18:00 Dextrose (D50w Syringe) 50 ml Q15M PRN IV DECREASED GLUCOSE; Start 01/21/17 at 18:00 Glucagon (Glucagen) 1 mg Q15M PRN IM DECREASED GLUCOSE; Start 01/21/17 at 18:00 Glucose (Glutose) 15 gm Q15M PRN BUCCAL DECREASED GLUCOSE; Start 01/21/17 at 18: 00 Insulin Aspart (Novolog Insulin Pen) (Adult SC Insulin - Mild Algorithm)... Q4 SC Last administered on 01/22/17 04:37; Admin Dose 1 UNIT; Start 01/22/17 at 01: 00 Hydrocortisone (Hydrocortisone 1% Oint) 1 applic TID PRN TOP PRURITUS; Start at 03:00 Bisacodyl (Dulcolax Supp) 10 mg DAILY PRN [place] CONSTIPATION Last administered on 01/22/17 04:10; Admin Dose 10 MG; Start 01/22/17 at 03:00 KELSIE VIRAMONTES Jan 22, 2017 08:03
[2017-01-22] MEDS ORDERED: METOPROLOL (XL) 50 MG TAB PO SCH (09:00)
[2017-01-22] MEDS: PANTOPRAZOLE IV 80 MG in SOD CHLORIDE 0.9% 100 ML IV SCH (09:32)
[2017-01-22] MEDS: METOPROLOL 25 MG TAB NGT SCH ×2 (09:33→20:56)
[2017-01-22] MEDS: LOSARTAN 50 MG TAB PO SCH (09:33)
[2017-01-22] MEDS: TRIMETHOPRIM/SULFAMETHOX (DS) TAB GTB SCH ×2 (09:33→20:46)
[2017-01-22] MEDS: AMLODIPINE 5 MG TAB PO SCH (09:33)
[2017-01-22] MEDS: ASCORBIC ACID 250 MG TAB NGT SCH (11:27)
[2017-01-22] MEDS: ZINC SULFATE 220 MG CAP GTB SCH (11:27)
--- NOTE | 2017-01-22 14:42 | PN ---
Date/Time of Note Date/Time of Note DATE: 01/22/17 TIME: 14:41 Assessment/Plan VTE Prophylaxis VTE Prophylaxis Intervention: SCD's Lines/Catheters IV Catheter Type (from Nrsg): Saline Lock Urinary Cath still in place: Yes Reason Cath still needed: terminal illness/intractable pain Assessment/Plan Chief Complaint/Hosp Course Patient is a 86-year-old female with past medical history of CVA and a chronic bedridden state and right eye blindness with PEG tube. Presents with severe anemia. Found to have severe iron deficiency anemia Assessment and problem list Severe microcytic iron deficiency anemia History of CVA Dysphasia Altered mentation, chronic Contractures, chronic Diabetes mellitus Hypertension Hypothyroidism Chronic congestive heart failure, EF of 40% Bilateral foot pressure ulcers This of anemia Plan -Hemoglobin still low, will transfuse another unit, will monitor -No episodes of dark tarry stool or bright red blood. Iron deficiency may be secondary to nutritional issues -Continue tube feedings -We will monitor and likely DC from the hospital on iron supplementation -Per GI, patient's daughter has refused endoscopy Problems: Subjective 24 Hr Interval Summary Free Text/Dictation does not respond to command, alert Exam/Review of Systems Vital Signs Vitals Vital Signs Date Time Temp Pulse Resp B/P Pulse Ox O2 Delivery O2 Flow Rate FiO2 01/22/17 14:26 79 01/22/17 11:30 Nasal Cannula 2.0 01/22/17 11:16 98.5 18 134/84 95 Intake and Output 01/21/17 01/21/17 01/22/17 15:00 23:00 07:00 Intake Total 627 ml 820 ml Output Total 1600 ml 800 ml Balance -973 ml 20 ml Exam Physical exam General: Patient is laying in bed, does not respond to command Mentation: Patient is alert and but not oriented. Head: Normocephalic atraumatic Eyes: EOMI, pupils reactive to light Neck: Supple, nontender, midline Respiratory: Clear to auscultation bilaterally Cardiovascular: regular rate, Gastrointestinal: non-tender to palpation, bowel sounds heard. Neurological: contracted. Skin: No new skin lesions, chronic foot ulcers Results Result Diagram: 01/22/17 0552 01/22/17 0552 Results 24 hrs Laboratory Tests Test 01/21/17 18:30 01/21/17 21:10 01/22/17 00:40 01/22/17 04:31 Bedside Glucose 137 142 154 143 Test 01/22/17 05:52 01/22/17 09:21 01/22/17 13:10 White Blood Count 11.5 H Red Blood Count 3.85 L Hemoglobin 7.8 L Hematocrit 28.6 L Mean Corpuscular Volume 74.3 L Mean Corpuscular Hemoglobin 20.3 L Mean Corpuscular Hemoglobin Concent 27.3 L Red Cell Distribution Width 22.0 H Platelet Count 444 H Mean Platelet Volume 9.3 Neutrophils % 54.7 Lymphocytes % 28.4 Monocytes % 9.0 Eosinophils % 7.0 Basophils % 0.5 Nucleated Red Blood Cells % 0.3 H Neutrophils # 6.3 Lymphocytes # 3.3 H Monocytes # 1.0 H Eosinophils # 0.8 H Basophils # 0.1 Nucleated Red Blood Cells # 0.0 Sodium Level 147 H Potassium Level 3.8 Chloride Level 107 Carbon Dioxide Level 26 Anion Gap 18 H Blood Urea Nitrogen 16 Creatinine 0.64 Glucose Level 131 Calcium Level 9.4 Phosphorus Level 2.9 Magnesium Level 2.3 Bedside Glucose 181 140 Medications Medications Current Medications Pantoprazole/ Sodium Chloride (Protonix Iv/NS) 100 ml @ 10 mls/hr Q10H IV Last administered on 01/22/17 09:32; Admin Dose 10 MLS/HR; Start 01/21/17 at 01: 30 Hydralazine HCl (Apresoline) 10 mg Q4H PRN IV ELEVATED SYSTOLIC BP Last administered on 01/21/17 11:37; Admin Dose 10 MG; Start 01/21/17 at 05:00 Trimethoprim/ Sulfamethoxazole (Bactrim (Ds)) 1 tab BID GTB Last administered on 01/22/17 09:33; Admin Dose 1 TAB; Start 01/21/17 at 09:00 Amlodipine Besylate (Norvasc) 5 mg DAILY PO Last administered on 01/22/17 09:33 ; Admin Dose 5 MG; Start 01/21/17 at 15:00 Losartan Potassium (Cozaar) 100 mg DAILY PO Last administered on 01/22/17 09:33 ; Admin Dose 100 MG; Start 01/21/17 at 15:00 Metoprolol Tartrate (Lopressor) 25 mg BID NGT Last administered on 01/22/17 09: 33; Admin Dose 25 MG; Start 01/21/17 at 21:00 Atorvastatin Calcium (Lipitor) 10 mg DAILY@21 PO Last administered on 01/21/17 21:20; Admin Dose 10 MG; Start 01/21/17 at 21:00 Miscellaneous Information 1 ea NOTE XX ; Start 01/21/17 at 18:00 Glucose (Glutose) 15 gm Q15M PRN PO DECREASED GLUCOSE; Start 01/21/17 at 18:00 Glucose (Glutose) 22.5 gm Q15M PRN PO DECREASED GLUCOSE; Start 01/21/17 at 18:00 Dextrose (D50w Syringe) 25 ml Q15M PRN IV DECREASED GLUCOSE; Start 01/21/17 at 18:00 Dextrose (D50w Syringe) 50 ml Q15M PRN IV DECREASED GLUCOSE; Start 01/21/17 at 18:00 Glucagon (Glucagen) 1 mg Q15M PRN IM DECREASED GLUCOSE; Start 01/21/17 at 18:00 Glucose (Glutose) 15 gm Q15M PRN BUCCAL DECREASED GLUCOSE; Start 01/21/17 at 18: 00 Insulin Aspart (Novolog Insulin Pen) (Adult SC Insulin - Mild Algorithm)... Q4 SC Last administered on 01/22/17 09:41; Admin Dose 2 UNIT; Start 01/22/17 at 01: 00 Hydrocortisone (Hydrocortisone 1% Oint) 1 applic TID PRN TOP PRURITUS; Start at 03:00 Bisacodyl (Dulcolax Supp) 10 mg DAILY PRN [place] CONSTIPATION Last administered on 01/22/17 04:10; Admin Dose 10 MG; Start 01/22/17 at 03:00 Ascorbic Acid (Vitamin C) 250 mg DAILY NGT Last administered on 01/22/17 11:27 ; Admin Dose 250 MG; Start 01/22/17 at 10:00 Zinc Sulfate (Zinc Sulfate) 220 mg DAILY GTB Last administered on 01/22/17 11: 27; Admin Dose 220 MG; Start 01/22/17 at 10:00 LADARIUS OAKLEY Jan 22, 2017 14:42
[2017-01-22] MEDS ORDERED: ACETAMINOPHEN 650MG/20.3ML CUP NGT PRN (15:00)
[2017-01-22] MEDS: PANTOPRAZOLE 40 MG INJ IV SCH (17:49)
[2017-01-22] MEDS: ATORVASTATIN 10 MG TAB PO SCH (20:46)
[2017-01-23] VITALS (12 sets, daily range): BP systolic 104–136; BP diastolic 51–64; PULSE 79–89; RESP 16–19
[2017-01-23] MEDS: Insulin NOVOLOG SS MILD Algorithm (NPO/TPN/ENTERAL FEEDS) SC SCH ×6 (01:00→21:00)
[2017-01-23] MEDS: PANTOPRAZOLE 40 MG INJ IV SCH ×2 (05:10→18:16)
[2017-01-23 05:33] LABS: BASOPHIL # 0.1 10^3/ul (0.0-0.1); BASOPHILS % 0.5 % (0.0-2.0); EOSINOPHILS # 1.2 10^3/ul (0.0-0.5); EOSINOPHILS % 10.8 % (0.0-7.0); HEMATOCRIT 31.4 % (37.0-47.0); HEMOGLOBIN 9.3 g/dl (12.0-16.0); LYMPHOCYTES % 18.1 % (15.0-51.0); MEAN CORPUSCULAR HEMOGLOBIN 22.9 pg (29.0-33.0); MEAN CORPUSCULAR HGB CONC 29.6 g/dl (32.0-37.0); MEAN CORPUSCULAR VOLUME 77.1 fl (82.0-101.0); MONOCYTE # 0.8 10^3/ul (0.3-0.9); MONOCYTES % 7.3 % (0.0-11.0); NEUTROPHILS % 62.9 % (39.0-77.0); PLATELET COUNT 365 10^3/UL (140-415); RED BLOOD COUNT 4.07 10^6/ul (4.20-5.40); RED CELL DISTRIBUTION WIDTH 21.8 % (11.5-14.5); WHITE BLOOD COUNT 11.2 10^3/ul (4.8-10.8)
[2017-01-23] MEDS: LEVOTHYROXINE 25 MCG TAB PO SCH (06:02)
[2017-01-23 06:19] LABS: CREATININE 0.66 mg/dl (0.44-1.00); MAGNESIUM 2.3 mg/dl (1.7-2.5); PHOSPHORUS 2.8 mg/dl (2.5-4.9); POTASSIUM 3.8 mmol/L (3.5-5.1)
[2017-01-23] MEDS: TRIMETHOPRIM/SULFAMETHOX (DS) TAB GTB SCH ×2 (08:10→20:46)
[2017-01-23] MEDS: AMLODIPINE 5 MG TAB PO SCH (08:10)
[2017-01-23] MEDS: METOPROLOL 25 MG TAB NGT SCH ×2 (08:10→20:46)
[2017-01-23] MEDS: ZINC SULFATE 220 MG CAP GTB SCH (08:10)
[2017-01-23] MEDS: LOSARTAN 50 MG TAB PO SCH (08:11)
[2017-01-23] MEDS: ASCORBIC ACID 250 MG TAB NGT SCH (08:11)
--- NOTE | 2017-01-23 13:27 | PN ---
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 Presents with severe anemia. Found to have severe iron deficiency anemia Assessment and problem list Severe microcytic iron deficiency anemia History of CVA Dysphasia Altered mentation, chronic Contractures, chronic Diabetes mellitus Hypertension Hypothyroidism Chronic congestive heart failure, EF of 40% Bilateral foot pressure ulcers This of anemia Plan -Hemoglobin was still low yesterday, transfused 1 more unit yesterday. stable for now. monitor overnight. -No episodes of dark tarry stool or bright red blood. Iron deficiency may be secondary to nutritional issues. no ferritin level due to blood already being given in ED. ? microbleed, monitor closely -Continue tube feedings -We will monitor and likely DC from the hospital when blood stable. -Per GI, patient's daughter has refused endoscopy/colonoscopy. DISPO: if stable overnight, possible ok to DC tomorrow. Problems: Subjective 24 Hr Interval Summary Free Text/Dictation baseline non-verbal. no family at bedside. Exam/Review of Systems Vital Signs Vitals Vital Signs Date Time Temp Pulse Resp B/P Pulse Ox O2 Delivery O2 Flow Rate FiO2 01/23/17 11:38 98.2 81 19 121/59 97 01/23/17 08:15 Nasal Cannula 2.0 Intake and Output 01/22/17 01/22/17 01/23/17 15:00 23:00 07:00 Intake Total 420 ml 800 ml Output Total 500 ml 600 ml Balance -80 ml 200 ml Exam Physical exam General: Patient is laying in bed, does not respond to command, at baseline Mentation: Patient is alert and but not oriented. Head: Normocephalic atraumatic Eyes: EOMI, pupils reactive to light Neck: Supple, nontender, midline Respiratory: Clear to auscultation bilaterally Cardiovascular: regular rate, Gastrointestinal: non-tender to palpation, bowel sounds heard. Neurological: contracted. Skin: No new skin lesions, chronic foot ulcers Results Result Diagram: 01/23/17 0504 01/23/17 0504 Results 24 hrs Laboratory Tests Test 01/22/17 17:48 01/23/17 05:04 01/23/17 05:11 01/23/17 05:58 Bedside Glucose 144 187 White Blood Count 11.2 H Red Blood Count 4.07 L Hemoglobin 9.3 L Hematocrit 31.4 L Mean Corpuscular Volume 77.1 L Mean Corpuscular Hemoglobin 22.9 L Mean Corpuscular Hemoglobin Concent 29.6 L Red Cell Distribution Width 21.8 H Platelet Count 365 Mean Platelet Volume 9.0 Neutrophils % 62.9 Lymphocytes % 18.1 Monocytes % 7.3 Eosinophils % 10.8 H Basophils % 0.5 Nucleated Red Blood Cells % 0.0 Neutrophils # 7.0 Lymphocytes # 2.0 Monocytes # 0.8 Eosinophils # 1.2 H Basophils # 0.1 Nucleated Red Blood Cells # 0.0 Sodium Level 147 H Potassium Level 3.8 Chloride Level 110 Carbon Dioxide Level 25 Anion Gap 16 Blood Urea Nitrogen 17 Creatinine 0.66 Glucose Level 174 Calcium Level 9.0 Phosphorus Level 2.8 Magnesium Level 2.3 Lab Scanned Report BLOOD TRANSFUSION Test 01/23/17 07:57 01/23/17 12:16 Bedside Glucose 149 131 Medications Medications Current Medications Hydralazine HCl (Apresoline) 10 mg Q4H PRN IV ELEVATED SYSTOLIC BP Last administered on 01/21/17 11:37; Admin Dose 10 MG; Start 01/21/17 at 05:00 Trimethoprim/ Sulfamethoxazole (Bactrim (Ds)) 1 tab BID GTB Last administered on 01/23/17 08:10; Admin Dose 1 TAB; Start 01/21/17 at 09:00 Amlodipine Besylate (Norvasc) 5 mg DAILY PO Last administered on 01/23/17 08:10 ; Admin Dose 5 MG; Start 01/21/17 at 15:00 Losartan Potassium (Cozaar) 100 mg DAILY PO Last administered on 01/23/17 08:11 ; Admin Dose 100 MG; Start 01/21/17 at 15:00 Metoprolol Tartrate (Lopressor) 25 mg BID NGT Last administered on 01/23/17 08: 10; Admin Dose 25 MG; Start 01/21/17 at 21:00 Atorvastatin Calcium (Lipitor) 10 mg DAILY@21 PO Last administered on 01/22/17 20:46; Admin Dose 10 MG; Start 01/21/17 at 21:00 Miscellaneous Information 1 ea NOTE XX ; Start 01/21/17 at 18:00 Glucose (Glutose) 15 gm Q15M PRN PO DECREASED GLUCOSE; Start 01/21/17 at 18:00 Glucose (Glutose) 22.5 gm Q15M PRN PO DECREASED GLUCOSE; Start 01/21/17 at 18:00 Dextrose (D50w Syringe) 25 ml Q15M PRN IV DECREASED GLUCOSE; Start 01/21/17 at 18:00 Dextrose (D50w Syringe) 50 ml Q15M PRN IV DECREASED GLUCOSE; Start 01/21/17 at 18:00 Glucagon (Glucagen) 1 mg Q15M PRN IM DECREASED GLUCOSE; Start 01/21/17 at 18:00 Glucose (Glutose) 15 gm Q15M PRN BUCCAL DECREASED GLUCOSE; Start 01/21/17 at 18: 00 Insulin Aspart (Novolog Insulin Pen) (Adult SC Insulin - Mild Algorithm)... Q4 SC Last administered on 01/23/17 08:17; Admin Dose 1 UNIT; Start 01/22/17 at 01: 00 Hydrocortisone (Hydrocortisone 1% Oint) 1 applic TID PRN TOP PRURITUS; Start at 03:00 Bisacodyl (Dulcolax Supp) 10 mg DAILY PRN [place] CONSTIPATION Last administered on 01/22/17 04:10; Admin Dose 10 MG; Start 01/22/17 at 03:00 Ascorbic Acid (Vitamin C) 250 mg DAILY NGT Last administered on 01/23/17 08:11 ; Admin Dose 250 MG; Start 01/22/17 at 10:00 Zinc Sulfate (Zinc Sulfate) 220 mg DAILY GTB Last administered on 01/23/17 08: 10; Admin Dose 220 MG; Start 01/22/17 at 10:00 Acetaminophen (Tylenol Liquid) 650 mg Q4H PRN NGT PAIN AND OR ELEVATED TEMP Last administered on 01/22/17 14:57; Admin Dose 650 MG; Start 01/22/17 at 15:00 Pantoprazole (Protonix Iv) 40 mg BID@,18 IV Last administered on 01/23/17 05: 10; Admin Dose 40 MG; Start 01/22/17 at 18:00 LADARIUS OAKLEY Jan 23, 2017 13:27
[2017-01-23] MEDS: ATORVASTATIN 10 MG TAB PO SCH (20:45)
[2017-01-24] VITALS (10 sets, daily range): BP systolic 108–153; BP diastolic 53–67; PULSE 82–100; RESP 16–18
[2017-01-24] MEDS: Insulin NOVOLOG SS MILD Algorithm (NPO/TPN/ENTERAL FEEDS) SC SCH ×5 (01:00→17:00)
[2017-01-24] MEDS: PANTOPRAZOLE 40 MG INJ IV SCH ×2 (06:03→17:14)
[2017-01-24] MEDS: LEVOTHYROXINE 25 MCG TAB PO SCH (06:05)
[2017-01-24] MEDS: ZINC SULFATE 220 MG CAP GTB SCH (08:29)
[2017-01-24] MEDS: LOSARTAN 50 MG TAB PO SCH (08:30)
[2017-01-24] MEDS: ASCORBIC ACID 250 MG TAB NGT SCH (08:30)
[2017-01-24] MEDS: TRIMETHOPRIM/SULFAMETHOX (DS) TAB GTB SCH (08:30)
[2017-01-24] MEDS: METOPROLOL 25 MG TAB NGT SCH (08:30)
[2017-01-24] MEDS: AMLODIPINE 5 MG TAB PO SCH (08:30)
[2017-01-24 10:33] LABS: ABNORMAL IP MESSAGE 1; BASOPHILS % 0.4 % (0.0-2.0); EOSINOPHILS # 0.9 10^3/ul (0.0-0.5); EOSINOPHILS % 9.6 % (0.0-7.0); HEMATOCRIT 33.3 % (37.0-47.0); HEMOGLOBIN 9.5 g/dl (12.0-16.0); LYMPHOCYTES # 2.4 10^3/ul (0.8-2.9); LYMPHOCYTES % 25.1 % (15.0-51.0); MEAN CORPUSCULAR HEMOGLOBIN 22.2 pg (29.0-33.0); MEAN CORPUSCULAR HGB CONC 28.5 g/dl (32.0-37.0); MEAN PLATELET VOLUME 9.5 fl (7.4-10.4); MONOCYTE # 0.7 10^3/ul (0.3-0.9); MONOCYTES % 7.8 % (0.0-11.0); NEUTROPHIL # 5.4 10^3/ul (1.6-7.5); NEUTROPHILS % 56.8 % (39.0-77.0); NUCLEATED RED BLOOD CELLS% 0.3 /100WBC (0.0-0.0); PLATELET COUNT 351 10^3/UL (140-415); RED BLOOD COUNT 4.27 10^6/ul (4.20-5.40); RED CELL DISTRIBUTION WIDTH 22.9 % (11.5-14.5); WHITE BLOOD COUNT 9.5 10^3/ul (4.8-10.8)
[2017-01-24 10:37] LABS: POSITIVE DIFF @See below
--- NOTE | 2017-01-24 11:39 | CONS ---
Date/Time of Note Date/Time of Note DATE: 01/24/17 TIME: 11:37 Assessment/Plan Assessment/Plan Additional Assessment/Plan There is been no change in overall clinical condition she remains noncommunicative stares into space does not follow simple command and does not appear to be in any acute distress. Would strongly recommend referring patient to hospice care at the time she is discharged. Suggest social work service to open affect conversation with patient's daughter who is very pleasant to speak with. Consultation Date/Type/Reason Admit Date/Time Jan 20, 2017 at 22:20 Initial Consult Date 01/21/17 Type of Consultation: Palliative care Referring Provider: LADARIUS OAKLEY Exam/Review of Systems Vital Signs Vitals Vital Signs Date Time Temp Pulse Resp B/P Pulse Ox O2 Delivery O2 Flow Rate FiO2 01/24/17 11:25 100.2 88 18 135/62 97 01/24/17 07:58 Nasal Cannula 2.0 Intake and Output 01/23/17 01/23/17 01/24/17 15:00 23:00 07:00 Intake Total 800 ml Output Total 650 ml Balance 150 ml Results Result Diagram: 01/24/17 1003 01/23/17 0504 Results 24 hrs Laboratory Tests Test 01/23/17 12:16 01/23/17 17:34 01/23/17 20:03 01/24/17 04:38 Bedside Glucose 131 157 132 117 Test 01/24/17 08:29 01/24/17 10:03 Bedside Glucose 158 White Blood Count 9.5 Red Blood Count 4.27 Hemoglobin 9.5 L Hematocrit 33.3 L Mean Corpuscular Volume 78.0 L Mean Corpuscular Hemoglobin 22.2 L Mean Corpuscular Hemoglobin Concent 28.5 L Red Cell Distribution Width 22.9 H Platelet Count 351 Mean Platelet Volume 9.5 Neutrophils % 56.8 Lymphocytes % 25.1 Monocytes % 7.8 Eosinophils % 9.6 H Basophils % 0.4 Nucleated Red Blood Cells % 0.3 H Neutrophils # 5.4 Lymphocytes # 2.4 Monocytes # 0.7 Eosinophils # 0.9 H Basophils # 0.0 Nucleated Red Blood Cells # 0.0 Medications Medications Current Medications Hydralazine HCl (Apresoline) 10 mg Q4H PRN IV ELEVATED SYSTOLIC BP Last administered on 01/21/17t 11:37; Admin Dose 10 MG; Start 01/21/17 at 05:00 Trimethoprim/ Sulfamethoxazole (Bactrim (Ds)) 1 tab BID GTB Last administered on 01/24/17 08:30; Admin Dose 1 TAB; Start 01/21/17 at 09:00 Amlodipine Besylate (Norvasc) 5 mg DAILY PO Last administered on 01/24/17 08:30 ; Admin Dose 5 MG; Start 01/21/17 at 15:00 Losartan Potassium (Cozaar) 100 mg DAILY PO Last administered on 01/24/17 08:30 ; Admin Dose 100 MG; Start 01/21/17 at 15:00 Metoprolol Tartrate (Lopressor) 25 mg BID NGT Last administered on 01/24/17 08: 30; Admin Dose 25 MG; Start 01/21/17 at 21:00 Atorvastatin Calcium (Lipitor) 10 mg DAILY@21 PO Last administered on 01/23/17 20:45; Admin Dose 10 MG; Start 01/21/17 at 21:00 Miscellaneous Information 1 ea NOTE XX ; Start 01/21/17 at 18:00 Glucose (Glutose) 15 gm Q15M PRN PO DECREASED GLUCOSE; Start 01/21/17 at 18:00 Glucose (Glutose) 22.5 gm Q15M PRN PO DECREASED GLUCOSE; Start 01/21/17 at 18:00 Dextrose (D50w Syringe) 25 ml Q15M PRN IV DECREASED GLUCOSE; Start 01/21/17 at 18:00 Dextrose (D50w Syringe) 50 ml Q15M PRN IV DECREASED GLUCOSE; Start 01/21/17 at 18:00 Glucagon (Glucagen) 1 mg Q15M PRN IM DECREASED GLUCOSE; Start 01/21/17 at 18:00 Glucose (Glutose) 15 gm Q15M PRN BUCCAL DECREASED GLUCOSE; Start 01/21/17 at 18: 00 Insulin Aspart (Novolog Insulin Pen) (Adult SC Insulin - Mild Algorithm)... Q4 SC Last administered on 01/24/17 08:37; Admin Dose 1 UNIT; Start 01/22/17 at 01: 00 Hydrocortisone (Hydrocortisone 1% Oint) 1 applic TID PRN TOP PRURITUS; Start at 03:00 Bisacodyl (Dulcolax Supp) 10 mg DAILY PRN NE CONSTIPATION Last administered on 01/22/17 04:10; Admin Dose 10 MG; Start 01/22/17 at 03:00 Ascorbic Acid (Vitamin C) 250 mg DAILY NGT Last administered on 01/24/17 08:30 ; Admin Dose 250 MG; Start 01/22/17 at 10:00 Zinc Sulfate (Zinc Sulfate) 220 mg DAILY GTB Last administered on 01/24/17 08: 29; Admin Dose 220 MG; Start 01/22/17 at 10:00 Acetaminophen (Tylenol Liquid) 650 mg Q4H PRN NGT PAIN AND OR ELEVATED TEMP Last administered on 01/22/17 14:57; Admin Dose 650 MG; Start 01/22/17 at 15:00 Pantoprazole (Protonix Iv) 40 mg BID@,18 IV Last administered on 01/24/17 06: 03; Admin Dose 40 MG; Start 01/22/17 at 18:00 KELSIE VIRAMONTES Jan 24, 2017 11:38
[2017-01-24] MEDS ORDERED: PANT40TA4 PO (11:43)
--- NOTE | 2017-01-24 11:53 | DS ---
Date/Time of Note Date/Time of Note DATE: 01/24/17 TIME: 11:52 Discharge Summary Admission/Discharge Info Admit Date/Time Jan 20, 2017 at 22:20 Discharge Date/Time Patient Condition: Stable Consults gastroenterology, palliative care Procedures pertinent labs Hematology - 72 Hrs Test 01/22/17 05:52 01/23/17 05:04 01/24/17 10:03 White Blood Count 11.510^3/ul (4.8-10.8) H 11.210^3/ul (4.8-10.8) H 9.510^3/ul (4.8-10.8) Red Blood Count 3.8510^6/ul (4.20-5.40) L 4.0710^6/ul (4.20-5.40) L 4.2710^6/ul (4.20-5.40) Hemoglobin 7.8g/dl (12.0-16.0) L 9.3g/dl (12.0-16.0) L 9.5g/dl (12.0-16.0) L Hematocrit 28.6% (37.0-47.0) L 31.4% (37.0-47.0) L 33.3% (37.0-47.0) L Mean Corpuscular Volume 74.3fl (82.0-101.0) L 77.1fl (82.0-101.0) L 78.0fl (82.0-101.0) L Mean Corpuscular Hemoglobin 20.3pg (29.0-33.0) L 22.9pg (29.0-33.0) L 22.2pg (29.0-33.0) L Mean Corpuscular Hemoglobin Concent 27.3g/dl (32.0-37.0) L 29.6g/dl (32.0-37.0) L 28.5g/dl (32.0-37.0) L Red Cell Distribution Width 22.0% (11.5-14.5) H 21.8% (11.5-14.5) H 22.9% (11.5-14.5) H Platelet Count 93371^3/UL (140-415) H 53206^3/UL (140-415) 79110^3/UL (140-415) Mean Platelet Volume 9.3fl (7.4-10.4) 9.0fl (7.4-10.4) 9.5fl (7.4-10.4) Neutrophils % 54.7% (39.0-77.0) 62.9% (39.0-77.0) 56.8% (39.0-77.0) Lymphocytes % 28.4% (15.0-51.0) 18.1% (15.0-51.0) 25.1% (15.0-51.0) Monocytes % 9.0% (0.0-11.0) 7.3% (0.0-11.0) 7.8% (0.0-11.0) Eosinophils % 7.0% (0.0-7.0) 10.8% (0.0-7.0) H 9.6% (0.0-7.0) H Basophils % 0.5% (0.0-2.0) 0.5% (0.0-2.0) 0.4% (0.0-2.0) Nucleated Red Blood Cells % 0.3/100WBC (0.0-0.0) H 0.0/100WBC (0.0-0.0) 0.3/100WBC (0.0-0.0) H Neutrophils # 6.310^3/ul (1.6-7.5) 7.010^3/ul (1.6-7.5) 5.410^3/ul (1.6-7.5) Lymphocytes # 3.310^3/ul (0.8-2.9) H 2.010^3/ul (0.8-2.9) 2.410^3/ul (0.8-2.9) Monocytes # 1.010^3/ul (0.3-0.9) H 0.810^3/ul (0.3-0.9) 0.710^3/ul (0.3-0.9) Eosinophils # 0.810^3/ul (0.0-0.5) H 1.210^3/ul (0.0-0.5) H 0.910^3/ul (0.0-0.5) H Basophils # 0.110^3/ul (0.0-0.1) 0.110^3/ul (0.0-0.1) 0.010^3/ul (0.0-0.1) Nucleated Red Blood Cells # 0.010^3/ul (0.0-0.0) 0.010^3/ul (0.0-0.0) 0.010^3/ul (0.0-0.0) Chemistry Test 01/21/17 18:30 01/21/17 21:10 01/22/17 00:40 01/22/17 04:31 Bedside Glucose 137mg/dL (70-220) 142mg/dL (70-220) 154mg/dL (70-220) 143mg/dL (70-220) Test 01/22/17 05:52 01/22/17 09:21 01/22/17 13:10 01/22/17 17:48 Sodium Level 147mmol/L (135-144) H Potassium Level 3.8mmol/L (3.5-5.1) Chloride Level 107mmol/L (97-110) Carbon Dioxide Level 26mmol/L (21-31) Anion Gap 18 (8-16) H Blood Urea Nitrogen 16mg/dl (7-20) Creatinine 0.64mg/dl (0.44-1.00) Glucose Level 131mg/dl (70-220) Calcium Level 9.4mg/dl (8.4-10.2) Phosphorus Level 2.9mg/dl (2.5-4.9) Magnesium Level 2.3mg/dl (1.7-2.5) Bedside Glucose 181mg/dL (70-220) 140mg/dL (70-220) 144mg/dL (70-220) Test 01/23/17 05:04 01/23/17 05:11 01/23/17 07:57 01/23/17 12:16 Sodium Level 147mmol/L (135-144) H Potassium Level 3.8mmol/L (3.5-5.1) Chloride Level 110mmol/L (97-110) Carbon Dioxide Level 25mmol/L (21-31) Anion Gap 16 (8-16) Blood Urea Nitrogen 17mg/dl (7-20) Creatinine 0.66mg/dl (0.44-1.00) Glucose Level 174mg/dl (70-220) Calcium Level 9.0mg/dl (8.4-10.2) Phosphorus Level 2.8mg/dl (2.5-4.9) Magnesium Level 2.3mg/dl (1.7-2.5) Bedside Glucose 187mg/dL (70-220) 149mg/dL (70-220) 131mg/dL (70-220) Test 01/23/17 17:34 01/23/17 20:03 01/24/17 04:38 01/24/17 08:29 Bedside Glucose 157mg/dL (70-220) 132mg/dL (70-220) 117mg/dL (70-220) 158mg/dL (70-220) Test 01/24/17 13:04 Bedside Glucose 132mg/dL (70-220) Chemistry Test 01/20/17 19:42 01/21/17 07:30 01/23/17 05:04 01/24/17 13:04 Iron Level 25ug/dl (35-150) L Total Iron Binding Capacity 351ug/dl (241-421) Percent Iron Saturation 7% SAT (22-52) L Folate > 20.0ng/ml (2.8-20.0) H Ferritin 9.1ng/ml (11.1-264.0) L Total Bilirubin 0.4mg/dl (0.2-1.3) Direct Bilirubin 0.00mg/dl (0.00-0.20) Indirect Bilirubin 0.4mg/dl (0-1.1) Aspartate Amino Transf (AST/SGOT) 34IU/L (15-46) Alanine Aminotransferase (ALT/SGPT) 34IU/L (13-69) Alkaline Phosphatase 108IU/L (42-121) Total Protein 7.7g/dl (6.1-8.1) Albumin 3.8g/dl (3.3-4.9) Globulin 3.90g/dl (1.3-3.2) H Albumin/Globulin Ratio 0.97 Sodium Level 147mmol/L (135-144) H Potassium Level 3.8mmol/L (3.5-5.1) Chloride Level 110mmol/L (97-110) Carbon Dioxide Level 25mmol/L (21-31) Anion Gap 16 (8-16) Blood Urea Nitrogen 17mg/dl (7-20) Creatinine 0.66mg/dl (0.44-1.00) Glucose Level 174mg/dl (70-220) Calcium Level 9.0mg/dl (8.4-10.2) Phosphorus Level 2.8mg/dl (2.5-4.9) Magnesium Level 2.3mg/dl (1.7-2.5) Bedside Glucose 132mg/dL (70-220) Hx of Present Illness This is an 86-year-old female with a history of CVA, chronic bedridden state, right eye blindness, dysphagia with G-tube for feeding, cardiomyopathy with EF of 40%, hypertension, diabetes, dyslipidemia and a history of infected sacral pressure ulcers. Patient was sent by PMD for abnormal lab, namely low hemoglobin. Patient is aphasic and does not follow commands and as such information is gathered from chart review and from the ER physician report. When she presented to the ER she was found to have a hemoglobin of 4.2 with MCV of 69. Iron studies consistent with iron deficiency. She has been started on the blood transfusion. Per ER physician, family reported that they change her diet per daily and has not seen dark stool or bright red blood. . Hospital Course Pt transfused 2 units prbcs and hgb improved to 9s and remained stable. Pt's asa and coumadin were stopped. Labs notable for iron deficiency. Pt got 1 dose of IV iron in the hospital and rx'ed on PO. Pt seen by GI, advised endoscopy but when family declined FOBT ordered (RESULTS STILL PENDING) and advised BID PPI. This was prescribed. Besides starting PPI and iron, no new meds added to home meds. Coumadin and asa stopped. All of this was discussed at length with family and over the phone with PCP prior to discharge. Home Meds Reported Medications Metformin* (Glucophage*) 500 Mg Tab, 500 MG PO QAM, #30 TAB 04/30/16 Simvastatin* (Zocor*) 20 Mg Tablet, 20 MG PO QHS, #30 TAB 04/30/16 Warfarin Sodium* (Coumadin*) 4 Mg Tablet, 4 MG PO DAILY, TAB 04/30/16 Levothyroxine Sodium* (Levothyroxine Sodium*) 25 Mcg Tablet, 25 MCG PO BEFORE BREAKFAST, #30 TAB 04/30/16 Metoprolol Succinate* (Toprol XL*) 50 Mg Tab.er.24h, 50 MG PO DAILY, #30 TAB TAKE 25 MG IF SBP 100 04/30/16 Aspirin* (Aspirin* Chew) 81 Mg Tab.chew, 81 MG PO DAILY, TAB.CHEW 04/30/16 Losartan Potassium* (Cozaar*) 100 Mg Tablet, 100 MG PO DAILY for NEEDED, #30 TAB 04/30/16 Amlodipine Besylate* (Norvasc*) 5 Mg Tablet, 5 MG PO DAILY for NEEDED, TAB 04/30/16 Discontinued Scripts Vits A & D/White Pet/Lanolin (Vitamin A & D Grx) 5 Gm Oint.pack, 1 APPLIC TOP BID for 30 Days Prov:SAM SCHERER 06/10/16 Multivitamins* (Theragran*) 1 Tab Tab, 1 TAB GTB DAILY for 30 Days, TAB Prov:REGIDORSAM 06/10/16 Lactobacillus Acidoph/Bulgaricus* (Floranex*) 1 Each Tablet, 1 TAB PO TID for 30 Days, TAB Prov:SAM SCHERER 06/10/16 Collagenase* (Santyl*) 30 Gm Oint..gm., 1 APPLIC TOP DAILY for 30 Days Prov:SAM SCHERER 06/10/16 Ascorbic Acid (Vitamin C) 500 Mg Tab, 500 MG GTB BID for 30 Days, TAB Prov:SAM SCHERER 06/10/16 Follow-up Plan PCP this week for continued home based care, GI within 4 weeks Primary Care Provider Ravi Time spent on discharge: > 30 minutes Pending Labs Laboratory Tests Test 01/23/17 12:16 01/23/17 17:34 01/23/17 20:03 01/24/17 04:38 Bedside Glucose 131mg/dL (70-220) 157mg/dL (70-220) 132mg/dL (70-220) 117mg/dL (70-220) Test 01/24/17 08:29 01/24/17 10:03 Bedside Glucose 158mg/dL (70-220) White Blood Count 9.510^3/ul (4.8-10.8) Red Blood Count 4.2710^6/ul (4.20-5.40) Hemoglobin 9.5g/dl (12.0-16.0) Hematocrit 33.3% (37.0-47.0) Mean Corpuscular Volume 78.0fl (82.0-101.0) Mean Corpuscular Hemoglobin 22.2pg (29.0-33.0) Mean Corpuscular Hemoglobin Concent 28.5g/dl (32.0-37.0) Red Cell Distribution Width 22.9% (11.5-14.5) Platelet Count 90179^3/UL (140-415) Mean Platelet Volume 9.5fl (7.4-10.4) Neutrophils % 56.8% (39.0-77.0) Lymphocytes % 25.1% (15.0-51.0) Monocytes % 7.8% (0.0-11.0) Eosinophils % 9.6% (0.0-7.0) Basophils % 0.4% (0.0-2.0) Nucleated Red Blood Cells % 0.3/100WBC (0.0-0.0) Neutrophils # 5.410^3/ul (1.6-7.5) Lymphocytes # 2.410^3/ul (0.8-2.9) Monocytes # 0.710^3/ul (0.3-0.9) Eosinophils # 0.910^3/ul (0.0-0.5) Basophils # 0.010^3/ul (0.0-0.1) Nucleated Red Blood Cells # 0.010^3/ul (0.0-0.0) SABRA MENCHACA MD Jan 24, 2017 11:53
[2017-01-24] MEDS ORDERED: FER325 G-TUBE (16:09)
--- NOTE | 2017-01-24 16:10 | PDOCDIS ---
Discharge Instructions CONDITION Patient Condition: Stable HOME CARE INSTRUCTIONS: Special Diet: GTube Feeding FOLLOW UP/APPOINTMENTS Follow-up Plan follow up with your primary care physician tomorrow as scheduled SABRA MENCHACA MD Jan 24, 2017 16:10
--- NOTE | 2017-01-24 16:28 | DS ---
Date/Time of Note Date/Time of Note DATE: 01/24/17 TIME: 16:28 Discharge Summary Admission/Discharge Info Admit Date/Time Jan 20, 2017 at 22:20 Discharge Date/Time Discharge Diagnosis iron deficiency anemia Patient Condition: Stable Consults GI, palliative Procedures pertinent labs Hematology - 72 Hrs Test 01/22/17 05:52 01/23/17 05:04 01/24/17 10:03 White Blood Count 11.510^3/ul (4.8-10.8) H 11.210^3/ul (4.8-10.8) H 9.510^3/ul (4.8-10.8) Red Blood Count 3.8510^6/ul (4.20-5.40) L 4.0710^6/ul (4.20-5.40) L 4.2710^6/ul (4.20-5.40) Hemoglobin 7.8g/dl (12.0-16.0) L 9.3g/dl (12.0-16.0) L 9.5g/dl (12.0-16.0) L Hematocrit 28.6% (37.0-47.0) L 31.4% (37.0-47.0) L 33.3% (37.0-47.0) L Mean Corpuscular Volume 74.3fl (82.0-101.0) L 77.1fl (82.0-101.0) L 78.0fl (82.0-101.0) L Mean Corpuscular Hemoglobin 20.3pg (29.0-33.0) L 22.9pg (29.0-33.0) L 22.2pg (29.0-33.0) L Mean Corpuscular Hemoglobin Concent 27.3g/dl (32.0-37.0) L 29.6g/dl (32.0-37.0) L 28.5g/dl (32.0-37.0) L Red Cell Distribution Width 22.0% (11.5-14.5) H 21.8% (11.5-14.5) H 22.9% (11.5-14.5) H Platelet Count 10429^3/UL (140-415) H 99847^3/UL (140-415) 52519^3/UL (140-415) Mean Platelet Volume 9.3fl (7.4-10.4) 9.0fl (7.4-10.4) 9.5fl (7.4-10.4) Neutrophils % 54.7% (39.0-77.0) 62.9% (39.0-77.0) 56.8% (39.0-77.0) Lymphocytes % 28.4% (15.0-51.0) 18.1% (15.0-51.0) 25.1% (15.0-51.0) Monocytes % 9.0% (0.0-11.0) 7.3% (0.0-11.0) 7.8% (0.0-11.0) Eosinophils % 7.0% (0.0-7.0) 10.8% (0.0-7.0) H 9.6% (0.0-7.0) H Basophils % 0.5% (0.0-2.0) 0.5% (0.0-2.0) 0.4% (0.0-2.0) Nucleated Red Blood Cells % 0.3/100WBC (0.0-0.0) H 0.0/100WBC (0.0-0.0) 0.3/100WBC (0.0-0.0) H Neutrophils # 6.310^3/ul (1.6-7.5) 7.010^3/ul (1.6-7.5) 5.410^3/ul (1.6-7.5) Lymphocytes # 3.310^3/ul (0.8-2.9) H 2.010^3/ul (0.8-2.9) 2.410^3/ul (0.8-2.9) Monocytes # 1.010^3/ul (0.3-0.9) H 0.810^3/ul (0.3-0.9) 0.710^3/ul (0.3-0.9) Eosinophils # 0.810^3/ul (0.0-0.5) H 1.210^3/ul (0.0-0.5) H 0.910^3/ul (0.0-0.5) H Basophils # 0.110^3/ul (0.0-0.1) 0.110^3/ul (0.0-0.1) 0.010^3/ul (0.0-0.1) Nucleated Red Blood Cells # 0.010^3/ul (0.0-0.0) 0.010^3/ul (0.0-0.0) 0.010^3/ul (0.0-0.0) Chemistry Test 01/21/17 18:30 01/21/17 21:10 01/22/17 00:40 01/22/17 04:31 Bedside Glucose 137mg/dL (70-220) 142mg/dL (70-220) 154mg/dL (70-220) 143mg/dL (70-220) Test 01/22/17 05:52 01/22/17 09:21 01/22/17 13:10 01/22/17 17:48 Sodium Level 147mmol/L (135-144) H Potassium Level 3.8mmol/L (3.5-5.1) Chloride Level 107mmol/L (97-110) Carbon Dioxide Level 26mmol/L (21-31) Anion Gap 18 (8-16) H Blood Urea Nitrogen 16mg/dl (7-20) Creatinine 0.64mg/dl (0.44-1.00) Glucose Level 131mg/dl (70-220) Calcium Level 9.4mg/dl (8.4-10.2) Phosphorus Level 2.9mg/dl (2.5-4.9) Magnesium Level 2.3mg/dl (1.7-2.5) Bedside Glucose 181mg/dL (70-220) 140mg/dL (70-220) 144mg/dL (70-220) Test 01/23/17 05:04 01/23/17 05:11 01/23/17 07:57 01/23/17 12:16 Sodium Level 147mmol/L (135-144) H Potassium Level 3.8mmol/L (3.5-5.1) Chloride Level 110mmol/L (97-110) Carbon Dioxide Level 25mmol/L (21-31) Anion Gap 16 (8-16) Blood Urea Nitrogen 17mg/dl (7-20) Creatinine 0.66mg/dl (0.44-1.00) Glucose Level 174mg/dl (70-220) Calcium Level 9.0mg/dl (8.4-10.2) Phosphorus Level 2.8mg/dl (2.5-4.9) Magnesium Level 2.3mg/dl (1.7-2.5) Bedside Glucose 187mg/dL (70-220) 149mg/dL (70-220) 131mg/dL (70-220) Test 01/23/17 17:34 01/23/17 20:03 01/24/17 04:38 01/24/17 08:29 Bedside Glucose 157mg/dL (70-220) 132mg/dL (70-220) 117mg/dL (70-220) 158mg/dL (70-220) Test 01/24/17 13:04 Bedside Glucose 132mg/dL (70-220) Chemistry Test 01/20/17 19:42 01/21/17 07:30 01/23/17 05:04 01/24/17 13:04 Iron Level 25ug/dl (35-150) L Total Iron Binding Capacity 351ug/dl (241-421) Percent Iron Saturation 7% SAT (22-52) L Folate > 20.0ng/ml (2.8-20.0) H Ferritin 9.1ng/ml (11.1-264.0) L Total Bilirubin 0.4mg/dl (0.2-1.3) Direct Bilirubin 0.00mg/dl (0.00-0.20) Indirect Bilirubin 0.4mg/dl (0-1.1) Aspartate Amino Transf (AST/SGOT) 34IU/L (15-46) Alanine Aminotransferase (ALT/SGPT) 34IU/L (13-69) Alkaline Phosphatase 108IU/L (42-121) Total Protein 7.7g/dl (6.1-8.1) Albumin 3.8g/dl (3.3-4.9) Globulin 3.90g/dl (1.3-3.2) H Albumin/Globulin Ratio 0.97 Sodium Level 147mmol/L (135-144) H Potassium Level 3.8mmol/L (3.5-5.1) Chloride Level 110mmol/L (97-110) Carbon Dioxide Level 25mmol/L (21-31) Anion Gap 16 (8-16) Blood Urea Nitrogen 17mg/dl (7-20) Creatinine 0.66mg/dl (0.44-1.00) Glucose Level 174mg/dl (70-220) Calcium Level 9.0mg/dl (8.4-10.2) Phosphorus Level 2.8mg/dl (2.5-4.9) Magnesium Level 2.3mg/dl (1.7-2.5) Bedside Glucose 132mg/dL (70-220) Hx of Present Illness This is an 86-year-old female with a history of CVA, chronic bedridden state, right eye blindness, dysphagia with G-tube for feeding, cardiomyopathy with EF of 40%, hypertension, diabetes, dyslipidemia and a history of infected sacral pressure ulcers. Patient was sent by PMD for abnormal lab, namely low hemoglobin. Patient is aphasic and does not follow commands and as such information is gathered from chart review and from the ER physician report. When she presented to the ER she was found to have a hemoglobin of 4.2 with MCV of 69. Iron studies consistent with iron deficiency. She has been started on the blood transfusion. Per ER physician, family reported that they change her diet per daily and has not seen dark stool or bright red blood. . Hospital Course Pt transfused 2 units prbcs and hgb improved to 9s and remained stable. Pt's asa and coumadin were stopped. Labs notable for iron deficiency. Pt got 1 dose of IV iron in the hospital and rx'ed on PO. Pt seen by GI, advised endoscopy but when family declined FOBT ordered (RESULTS STILL PENDING) and advised BID PPI. This was prescribed. Besides starting PPI and iron, no new meds added to home meds. Coumadin and asa stopped. All of this was discussed at length with family and over the phone with PCP prior to discharge. Home Meds Reported Medications Metformin* (Glucophage*) 500 Mg Tab, 500 MG PO QAM, #30 TAB 04/30/16 Simvastatin* (Zocor*) 20 Mg Tablet, 20 MG PO QHS, #30 TAB 04/30/16 Warfarin Sodium* (Coumadin*) 4 Mg Tablet, 4 MG PO DAILY, TAB 04/30/16 Levothyroxine Sodium* (Levothyroxine Sodium*) 25 Mcg Tablet, 25 MCG PO BEFORE BREAKFAST, #30 TAB 04/30/16 Metoprolol Succinate* (Toprol XL*) 50 Mg Tab.er.24h, 50 MG PO DAILY, #30 TAB TAKE 25 MG IF SBP 100 04/30/16 Aspirin* (Aspirin* Chew) 81 Mg Tab.chew, 81 MG PO DAILY, TAB.CHEW 04/30/16 Losartan Potassium* (Cozaar*) 100 Mg Tablet, 100 MG PO DAILY for NEEDED, #30 TAB 04/30/16 Amlodipine Besylate* (Norvasc*) 5 Mg Tablet, 5 MG PO DAILY for NEEDED, TAB 04/30/16 Discontinued Scripts Vits A & D/White Pet/Lanolin (Vitamin A & D Grx) 5 Gm Oint.pack, 1 APPLIC TOP BID for 30 Days Prov:SAM SCHERER 06/10/16 Multivitamins* (Theragran*) 1 Tab Tab, 1 TAB GTB DAILY for 30 Days, TAB Prov:REGIDORSAM 06/10/16 Lactobacillus Acidoph/Bulgaricus* (Floranex*) 1 Each Tablet, 1 TAB PO TID for 30 Days, TAB Prov:SAM SCHERER 06/10/16 Collagenase* (Santyl*) 30 Gm Oint..gm., 1 APPLIC TOP DAILY for 30 Days Prov:SAM SCHERER 06/10/16 Ascorbic Acid (Vitamin C) 500 Mg Tab, 500 MG GTB BID for 30 Days, TAB Prov:SAM SCHERER 06/10/16 Follow-up Plan PCP tomorrow Primary Care Provider Ravi Time spent on discharge: > 30 minutes Pending Labs Laboratory Tests Test 01/23/17 17:34 01/23/17 20:03 01/24/17 04:38 01/24/17 08:29 Bedside Glucose 157mg/dL (70-220) 132mg/dL (70-220) 117mg/dL (70-220) 158mg/dL (70-220) Test 01/24/17 10:03 01/24/17 13:04 White Blood Count 9.510^3/ul (4.8-10.8) Red Blood Count 4.2710^6/ul (4.20-5.40) Hemoglobin 9.5g/dl (12.0-16.0) Hematocrit 33.3% (37.0-47.0) Mean Corpuscular Volume 78.0fl (82.0-101.0) Mean Corpuscular Hemoglobin 22.2pg (29.0-33.0) Mean Corpuscular Hemoglobin Concent 28.5g/dl (32.0-37.0) Red Cell Distribution Width 22.9% (11.5-14.5) Platelet Count 19082^3/UL (140-415) Mean Platelet Volume 9.5fl (7.4-10.4) Neutrophils % 56.8% (39.0-77.0) Lymphocytes % 25.1% (15.0-51.0) Monocytes % 7.8% (0.0-11.0) Eosinophils % 9.6% (0.0-7.0) Basophils % 0.4% (0.0-2.0) Nucleated Red Blood Cells % 0.3/100WBC (0.0-0.0) Neutrophils # 5.410^3/ul (1.6-7.5) Lymphocytes # 2.410^3/ul (0.8-2.9) Monocytes # 0.710^3/ul (0.3-0.9) Eosinophils # 0.910^3/ul (0.0-0.5) Basophils # 0.010^3/ul (0.0-0.1) Nucleated Red Blood Cells # 0.010^3/ul (0.0-0.0) Bedside Glucose 132mg/dL (70-220) SABRA MENCHACA MD Jan 24, 2017 16:28
== END 2017-01-24 20:15 | disposition home or self-care (01) | DRG 812 ==
LOC: E/R 19:05 → MS4 22:20 → TEL 01-21 20:48
PROVIDERS: ADMIT Internal Medicine; ATTEND Internal Medicine
PROC: 30233N1 Transfusion of Nonautologous Red Blood Cells into Peripheral Vein, Percutaneous Approach (ICD-10-PCS; principal; 2017-01-20)
PROC: 30233K1 Transfusion of Nonautologous Frozen Plasma into Peripheral Vein, Percutaneous Approach (ICD-10-PCS; 2017-01-21)
DX: D50.9 Iron deficiency anemia, unspecified (principal); F03.90 Unspecified dementia, unspecified severity, without behavioral disturbance, psychotic disturbance, mood disturbance, and anxiety; I42.9 Cardiomyopathy, unspecified; I11.0 Hypertensive heart disease with heart failure; I50.22 Chronic systolic (congestive) heart failure; I69.351 Hemiplegia and hemiparesis following cerebral infarction affecting right dominant side; H54.41 Blindness, right eye, normal vision left eye; Z79.01 Long term (current) use of anticoagulants; Z79.84 Long term (current) use of oral hypoglycemic drugs; Z79.82 Long term (current) use of aspirin; I69.320 Aphasia following cerebral infarction; Z74.01 Bed confinement status; E03.9 Hypothyroidism, unspecified; L89.899 Pressure ulcer of other site, unspecified stage; Z93.1 Gastrostomy status; E78.5 Hyperlipidemia, unspecified; R79.1 Abnormal coagulation profile; E11.9 Type 2 diabetes mellitus without complications; Z86.718 Personal history of other venous thrombosis and embolism; R47.02 Dysphasia
CPT/HCPCS: 36415; 36430; 71010; 80048; 80053; 82728; 82746; 82962; 83540; 83735; 84100; 85025; 85610; 85730; 86850; 86900; 86901; 86920; J1940; C9113; J0360; J1815; P9016; P9059

== ENCOUNTER → 2017-06-18 | Emergency (ER) | END | disposition home or self-care (01) ==